=== PATIENT | female | born 1985 | race African-American/Black ===

== ENCOUNTER 2016-05-09 02:31 | Emergency (ER) | payer MEDICAID ==
[2016-05-09 02:40] VITALS: TEMP 99; BMI 51.5
[2016-05-09] MEDS ORDERED: SODIUM CHLORIDE 0.9% 3 ML FLUSH FLUSH PRN (03:52)
[2016-05-09] MEDS ORDERED: KETOROLAC TROMETH 30 MG/ML VIAL IV ONE (04:02)
--- NOTE | 2016-05-09 04:18 | EDPRACDOC ---
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 Mode Of Arrival: Ambulance Home Medications: Home Medications Levetiracetam [Keppra] 500 mg PO BID #60 tablet 01/09/15 Albuterol Sulfate 1.25 mg NEB QID PRN #1 box 03/03/16 Albuterol Sulfate [Proair Hfa] 2 puff INH QID PRN #1 inhaler 03/03/16 Sertraline HCl [Zoloft] 50 mg PO DAILY 03/03/16 Allergies/Adverse Reactions: Allergies Allergy/AdvReac Type Severity Reaction Status Date / Time acetaminophen [From Percocet] Allergy Itching Verified 05/09/16 04:05 ketorolac [From Toradol] Allergy Itching Verified 05/09/16 04:06 oxycodone [From Percocet] Allergy Itching Verified 05/09/16 04:05 - History of Present 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 she stated that she takes meds as rx'd, ar nsg staff stated that she hasnt because theyve been lost by her children. she has seen neuro n the past and had w/u in past. Witnessed: YES Postictal: No Episodes: Reports: recent history Compliant with Seizure Medication: No Seizure Type: Reports: Grand Mal, Shaking Seizure Trigger: Reports: Unknown (poor sleep per pt) Prior to Seizure: Reports: Other (sleeping) During Seizure: Reports: Salivation (drooling), Teeth Clenched, Oral Bleeding, Urine Incontinence Arousable To: Denies: Name, Touch Immediately After Seizure: Reports: Confusion Relevant History of: Denies: Brain Cancer, Brain Tumor, Head Trauma, Febrile Seizures, Substance Abuse Associated Signs & Symptoms: Reports: Headache, Other (toothache). 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 EMS Treatment BLS IV No ED Past Medical History - History Reviewed Yes Nurses notes reviewed and agree except as marked - Patient Medical History Neurological History: Reports: Seizures Respiratory History: Reports: Asthma Psychological History: Denies: Depression Surgical History: Reports: Other (BTL) - Social Medical History Smoking Status: Heavy tobacco smoker (5 or more cigarettes/day or daily pipe/ cigar) EDM Review of Systems - Review of Systems ROS Negative Except as Marked: Yes All systems reviewed and were negative except as marked - Physical Exam Constitutional: Alert (Awake), No apparent distress Oriented to: Time, Person, Place Last recorded Vital Signs: Last Vital Signs Temp 99 F 05/09/16 02:37 Pulse 96 05/09/16 02:37 Resp 20 05/09/16 02:37 BP 122/67 05/09/16 02:37 Pulse Ox 95 05/09/16 02:37 Oxygen Pulse Oxygen Saturation 95 O2 Device Room Air Oxygen Flow Rate Fraction of Inspired Oxygen ( FIO2) - HEENT Head: Normal ( normocephalic) Eye Exam: Normal (PERRL, EOMI, Sclera white) Oropharynx: Normal (Pharynx:Moist without exudate,Gums-no swelling) Tympanic Membrane: Normal ENT EAC: Normal TMJ: Normal Nose: No Symptoms Reported (septum midline) Neck: Normal (FROM, trachea at midline) - Respiratory/Cardiovascular Respiratory: Normal - CTA (BBS clear to auscultation without adventitious sounds ) Cardiovascular: Normal (RRR without murmur, gallop or rub) - GI Auscultation: Normal (NABS) Palpation: Normal (Soft,No rebound or guarding, non distended) Tenderness: Non tender Alfaro's Sign: Negative - Musculoskeletal Back: Normal (Non-Tender) Extremities: Normal (Normal tone, Pulses 2+ No cyanosis or edema, FROM) - Integumentary Skin: Normal, Warm, Dry Lymphatics: Normal (no adenopathy) - Neurologic Memory Impaired: Normal Motor Function: Normal (Normal tone, Pulses 2+ No cyanosis or edema, FROM) Cranial Nerve: Normal (CN II-X11 intact sensation, strength 5/5) Cerebellar: Normal Mood Description: Normal Perception: Normal - Re-evaluation Re-evaluation 1 Re-evaluation Time: 05:40 (improved, has fatigue as a result of the seizure.) - Results 05/09/16 04:14 Decision Time to Discharge: 05:40 - Departure Yes I personally saw and evaluated the patient. Disposition: Home Condition: Stable Final Diagnosis: Generalized-onset seizures Epilepsy Qualifiers: Epilepsy type: unspecified Intractability: not intractable Status epilepticus: without status epilepticus Qualified Code(s): G40.909 - Epilepsy, unspecified, not intractable, without status epilepticus Instructions: Seizures Education/Counseling Given To: Patient, Family Member Education/Counseling Given Regarding: Diagnosis, Treatment, Follow Up Referrals: None,No Provider [Primary Care Provider] - One Week Additional Instructions: Call your neurologist today to schedule the earliest available follow up appointment.
[2016-05-09] MEDS ORDERED: ONDANSETRON HCL 4 MG/2 ML VIAL IV ONE (04:34)
[2016-05-09] MEDS ORDERED: HYDROmorphone 1 MG INJECTION IV ONE (04:34)
[2016-05-09 04:38] LABS: BLOOD UREA NITROGEN 9 MG/DL (7-17); CALCIUM 8.8 MG/DL (8.4-10.2); CALCULATED OSMOLALITY 268 MOs/Kg (270-290); CHLORIDE 106 mEq/L (98-107); GLUCOSE 96 MG/DL (70-99); SODIUM LEVEL 140 mEq/L (137-146)
[2016-05-09 05:59] VITALS: BP 123/66; PULSE 78
[2016-05-09] MEDS ORDERED: SODIUM CHLORIDE 0.9% 3 ML FLUSH FLUSH SCH (06:00)
== END 2016-05-09 05:58 | disposition home or self-care (01) ==
LOC: ED 02:31
DX: G40.909 Epilepsy, unspecified, not intractable, without status epilepticus (principal); F17.200 Nicotine dependence, unspecified, uncomplicated; Z79.899 Other long term (current) drug therapy
CPT/HCPCS: 36415; 80048; 81025; 83735; 96374; 96375; 99285; J1170; J2405

== ENCOUNTER 2016-05-24 03:43 | Emergency (ER) | payer MEDICAID ==
[2016-05-24] MEDS ORDERED: DIPHENHYDRAMINE 50 MG/ML VIAL ONE (05:04)
[2016-05-24] MEDS ORDERED: METOCLOPRAMIDE 10 MG/2 ML VIAL ONE (05:04)
[2016-05-24] MEDS ORDERED: KETOROLAC TROMETHAMINE 60 MG/2 ML SDV IM ONE (05:05)
[2016-05-24 05:19] VITALS: BMI 51.5
[2016-05-24 08:17] LABS: LEUKOCYTES/URINE 1+ (NEGATIVE); NITRITE/URINE NEG (NEGATIVE); RBC/URINE 0-2 (0-5); URINE OCCULT BLOOD NEG (NEG/TRACE)
== END 2016-05-24 05:15 | disposition home or self-care (01) ==
LOC: ED 03:43
DX: N39.0 Urinary tract infection, site not specified (principal); R56.9 Unspecified convulsions; R51 Headache
CPT/HCPCS: 81001; 81025; 99283; J1200; J1885; J2765